=== PATIENT | female | born 1970 | race Caucasian/White ===

== ENCOUNTER 2017-01-07 18:20 | Emergency (ER) | payer MEDICAID ==
[~2017-01-07] VITALS: Ht 167.6 cm; Wt 60.8 kg
[2017-01-07] MEDS ORDERED: TRAZ-147 PO (19:04)
[2017-01-07] MEDS ORDERED: ALBU1.25 IH (19:04)
[2017-01-07 19:46] LABS: BASOPHILS % (AUTO) 0.7 % (0.0-2.0); EOSINOPHILS # (AUTO) 0.1 K/uL (0.0-0.7); EOSINOPHILS % (AUTO) 1.6 % (0.0-7.0); HEMATOCRIT 37.9 % (37.0-47.0); HEMOGLOBIN 12.7 g/dL (12.0-16.0); LYMPHOCYTES # (AUTO) 2.5 K/uL (0.8-4.8); LYMPHOCYTES % (AUTO) 48.1 % (20.5-51.5); MEAN CORPUSCULAR HEMOGLOBIN 30.8 uug (27.0-31.0); MEAN CORPUSCULAR HGB CONC 33 g/dL (32.0-37.0); MEAN CORPUSCULAR VOLUME 92.2 fL (81.0-99.0); MONOCYTES # (AUTO) 0.4 K/uL (0.1-1.30); MONOCYTES % (AUTO) 7.6 % (0.0-11.0); NEUTROPHILS # (AUTO) 2.1 K/uL (1.8-8.9); PLATELET COUNT (AUTO) 273 K/uL (150-450); RED BLOOD CELL COUNT(AUTO) 4.11 MIL/uL (4.20-5.40); RED CELL DISTRIBUTION WIDTH 13.4 % (11.5-14.5); WHITE BLOOD COUNT (AUTO) 5.1 K/uL (4.0-11.2)
[2017-01-07 19:50] LABS: CALCIUM 9.2 mg/dL (8.5-10.1); CREATININE 0.8 mg/dL (0.6-1.3); POTASSIUM 3.2 mmol/L (3.5-5.1)
[2017-01-07] MEDS: KETOROLAC TROMETHAMINE 15 MG INJ IM ONE (20:36)
[2017-01-07] MEDS ORDERED: KETOROLAC TROMETHAMINE 15 MG INJ ONE (20:40)
--- NOTE | 2017-01-07 20:50 | NUR ---
Patient discharged to home in stable conditon. Written and verbal after care instructions given. Patient verbalizes understanding of instructions.
== END 2017-01-07 20:51 | disposition home or self-care (01) ==
LOC: ER 18:20
DX: R25.2 Cramp and spasm (principal); Z88.2 Allergy status to sulfonamides; Z88.1 Allergy status to other antibiotic agents
CPT/HCPCS: 36415; 80048; 84702; 85025; 85379; 85610; 85730; 93971; 96372; 99285; A4663; J1885

== ENCOUNTER 2017-05-13 15:16 | Emergency (ER) | payer MEDICAID, OTHER ==
[~2017-05-13] VITALS: Ht 167.6 cm; Wt 61.2 kg
[~2017-05-13 15:16] MED LIST: ALBU1.25 IH; TRAZ-147 PO
[2017-05-13] MEDS ORDERED: FLUC150T PO (15:28)
--- NOTE | 2017-05-13 16:56 | NUR ---
ER doctor is at bedside evaluating patient, pending MD orders at this time.
--- NOTE | 2017-05-13 18:05 | NUR ---
Patient is resting comfortably on gurney, no change in condition seen, pending disposition still.
[2017-05-13] MEDS ORDERED: KETOROLAC TROMETHAMINE 30 MG INJ IVP ONE (18:15)
[2017-05-13] MEDS ORDERED: IV NS 1000 ML 1,000 ML IV ONE (18:15)
[2017-05-13 18:24] LABS: BASOPHILS % (AUTO) 0.8 % (0.0-2.0); EOSINOPHILS # (AUTO) 0.1 K/uL (0.0-0.7); EOSINOPHILS % (AUTO) 2.4 % (0.0-7.0); HEMATOCRIT 38.4 % (37-47); HEMOGLOBIN 12.9 G/DL (12.0-16.0); LYMPHOCYTES # (AUTO) 2.1 K/UL (0.8-4.8); LYMPHOCYTES % (AUTO) 52.4 % (20.5-51.5); MEAN CORPUSCULAR HEMOGLOBIN 31.2 UUG (27.0-31.0); MEAN CORPUSCULAR HGB CONC 34 g/dL (32.0-37.0); MEAN CORPUSCULAR VOLUME 92.6 FL (81.0-99.0); MONOCYTES # (AUTO) 0.3 K/UL (0.1-1.30); MONOCYTES % (AUTO) 7.6 % (0.0-11.0); NEUTROPHILS # (AUTO) 1.5 K/UL (1.8-8.9); NEUTROPHILS % (AUTO) 36.8 % (38.5-71.5); PLATELET COUNT (AUTO) 268 K/UL (150-450); RED BLOOD CELL COUNT(AUTO) 4.14 MIL/UL (4.2-5.4)
[2017-05-13 18:25] LABS: CREATININE 0.8 mg/dL (0.6-1.3); POTASSIUM 3.9 mmol/L (3.5-5.1)
[2017-05-13 18:32] LABS: BILIRUBIN,TOTAL 0.2 mg/dL (0.2-1.0); TOTAL PROTEIN, SERUM 7.3 g/dL (6.4-8.2)
[2017-05-13] MEDS ORDERED: KETOROLAC TROMETHAMINE 30 MG INJ ONE (18:43)
[2017-05-13] MEDS ORDERED: IOHEXOL 350 100 ML INFUS..BTL ONE (18:43)
[2017-05-13] MEDS ORDERED: NORMAL SALINE FLUSH 10 ML DISP.SYRIN ONE (18:43)
[2017-05-13] MEDS ORDERED: IV NORMAL SALINE 250 ML IV ONE (18:43)
--- NOTE | 2017-05-13 19:16 | NUR ---
Received report from LORENE [place]. Assumed care of pt at this time. Pt to CT via olga
--- NOTE | 2017-05-13 19:37 | NUR ---
Pt returned from CT. Pt resting in position of comfort for self. Resp even and unlabored. Pt cont to c/o pain s/p previous medication. notified. Awaiting further orders.
[2017-05-13] MEDS ORDERED: ONDANSETRON IV *ER 4 MG/2 ML VIAL IV ONE (20:00)
[2017-05-13] MEDS ORDERED: MORPHINE SULFATE 4 MG/1 ML DISP.SYRIN IV ONE (20:00)
[2017-05-13] MEDS ORDERED: ENOXAPARIN SODIUM 60 MG/0.6 ML DISP.SYRIN SQ ONE ×2 (20:00→20:20)
[2017-05-13] MEDS ORDERED: MORPHINE SULFATE 4 MG/1 ML DISP.SYRIN ONE (20:11)
[2017-05-13] MEDS ORDERED: ONDANSETRON 4 MG/2 ML VIAL ONE (20:11)
--- NOTE | 2017-05-13 20:24 | NUR ---
Pt sts pain improved. Pt stable for discharge per MD. IV dc'd, catheter intact. Drsg applied, no problems noted to site. Pt given ACI. Pt verbalized understanding of dc instructions. Pt ambulated out of ER with steady gait to wait for ride
[2017-05-13 20:26] VITALS: BP 134/98
== END 2017-05-13 20:27 | disposition home or self-care (01) ==
LOC: ER 15:16
DX: S46.911A Strain of unspecified muscle, fascia and tendon at shoulder and upper arm level, right arm, initial encounter (principal); R79.1 Abnormal coagulation profile; Z88.2 Allergy status to sulfonamides; Z88.1 Allergy status to other antibiotic agents; Z86.711 Personal history of pulmonary embolism; X58.XXXA Exposure to other specified factors, initial encounter; Y93.9 Activity, unspecified; Y92.9 Unspecified place or not applicable; Y99.9 Unspecified external cause status
CPT/HCPCS: 36415; 71275; 73020; 80053; 84703; 85025; 85379; 96372; 96374; 96375; 99285; A4663; J1650; J1885; J2270; J2405; J3490; J7030; J7050; Q9967